=== PATIENT | female | born 1970 | race Caucasian/White ===

== ENCOUNTER → 2018-08-06 | Day surgery (SDC) | payer OTHER ==
[~2018-08-06] MED LIST: BENTYL10 MG PO; FAMOTIDINE20 MG PO; FENTANYL CITRATE/PF 100MCG/2 ML INJ ONE; MIDAZOLAM HCL 2 MG/2 ML VIAL ONE; PROBIOTIC & AC1 EACH PO; PROPOFOL IV EMULSION 10 MG/ML 50 ML VIAL ONE; ULTRAM50 MG PO
[2018-08-06 16:15] VITALS: BP 108/69
--- NOTE | 2018-08-06 17:22 | Operative Report ---
DATE OF PROCEDURE: August 06, 2018 REFERRING PHYSICIAN: Dr. Odin Prado. PROCEDURE PERFORMED: Esophagogastroduodenoscopy with biopsies. INDICATIONS FOR ESOPHAGOGASTRODUODENOSCOPY: Upper abdominal pain and heartburn. MEDICATION: Patient was done under MAC. Please see anesthesiologist's note. PROCEDURE: With the patient in the left lateral decubitus position, the flexible fiberoptic Olympus gastroscope was introduced into the esophagus under direct visualization without any difficulty. An approximately 4 mm sessile flat polypoid lesion was noted in the cervical esophagus, and that was biopsied. The mucosa overlying the distal esophagus revealed some patchy areas of erythema. The scope was then advanced with ease into the stomach. Mucosa overlying the antrum and the body revealed some patchy erythema and moderate edema, and biopsies were obtained and sent to stain for H. pylori. A minute polyp was noted in the distal body, and that was partially excised with the cold biopsy forceps. The pylorus was of normal contour and shape, was intubated with ease, and the scope was advanced all the way to the 2nd portion of the duodenum. The scope was then withdrawn slowly. Mucosa overlying the proximal 2nd portion and the duodenal bulb appeared to be within normal limits. The scope was then withdrawn back into the stomach and retroflexed, and mucosa overlying the fundus and the cardia appeared to be within normal limits. The scope was then straightened out. It was subsequently withdrawn. Patient tolerated the procedure well. IMPRESSION: 1. Approximately 4 mm sessile lesion, flat, proximal esophagus biopsied. 2. Distal esophagitis, mild. 3. Gastritis biopsied. Biopsies sent to stain for H. pylori. 4. Minute polyp distal body partially excised with the cold biopsy forceps. PLAN: Follow up histology. Initiate Protonix 40 mg 1 p.o. q.a.m. a.c. Job#: [id number] EV cc:ODIN PRADO DO
== END | disposition home or self-care (01) ==
LOC: OR 13:09
PROVIDERS: ATTEND Internal Medicine Gastroenterology
DX: K29.70 Gastritis, unspecified, without bleeding (principal); K31.7 Polyp of stomach and duodenum; K21.9 Gastro-esophageal reflux disease without esophagitis; K22.8 Other specified diseases of esophagus; K20.9 Esophagitis, unspecified; K44.9 Diaphragmatic hernia without obstruction or gangrene; K59.00 Constipation, unspecified; J45.909 Unspecified asthma, uncomplicated; F17.210 Nicotine dependence, cigarettes, uncomplicated; Z86.19 Personal history of other infectious and parasitic diseases
CPT/HCPCS: 43239; J2250

== ENCOUNTER → 2020-12-16 | Day surgery (SDC) | payer OTHER ==
[2020-12-11 12:01] LABS: BASOPHILS # (AUTO) 0.1 (0.0-0.1); BASOPHILS % 1.1 % (0.0-1.0); EOSINOPHILS # (AUTO) 0.2 (0.0-0.4); HEMOGLOBIN 14.1 g/dL (12.0-16.0); LYMPHOCYTES # (AUTO) 2.1 (1.0-3.2); LYMPHOCYTES % 25.1 % (18.0-39.1); MEAN CORPUSCULAR HEMOGLOBIN 31.9 pg (28-32); MEAN CORPUSCULAR HGB CONC 32.8 g/dL (31-35); MEAN CORPUSCULAR VOLUME 97.3 fL (81-99); MONOCYTES # (AUTO) 0.6 (0.2-0.8); MONOCYTES % 7.5 % (4.4-11.3); NEUTROPHILS # (AUTO) 5.4 (2.1-6.9); NEUTROPHILS % 63.9 % (38.7-80.0); PLATELET COUNT 279 x10e3/uL (140-360); RED BLOOD COUNT 4.42 x10e6/uL (3.6-5.1); RED CELL DISTRIBUTION WIDTH 12.4 % (11.7-14.4)
[~2020-12-16] MED LIST changes: +ALBUTEROL0.63 MG/3 NEB; +LEXAPRO10 MG PO; +LIDOCAINE HCL 2% LOCAL INJ 5 ML SDV VIAL INJ ONE; +PANTOPRAZOLE 40 MG 10ML VIAL ONE; +PANTOPRAZOLE SO40 MG PO; +PROPOFOL IV EMULSION 10 MG/ML 20 ML VIAL ONE; -PROPOFOL IV EMULSION 10 MG/ML 50 ML VIAL ONE; +SYMBICORT 80-10.2 GM INH
[2020-12-16 19:20] VITALS: BP 115/67
== END | disposition home or self-care (01) ==
LOC: OR 14:22
PROVIDERS: ATTEND Internal Medicine Gastroenterology
DX: K20.90 Esophagitis, unspecified without bleeding (principal); K31.7 Polyp of stomach and duodenum; K29.60 Other gastritis without bleeding; K25.9 Gastric ulcer, unspecified as acute or chronic, without hemorrhage or perforation; K21.9 Gastro-esophageal reflux disease without esophagitis; J45.909 Unspecified asthma, uncomplicated; F17.210 Nicotine dependence, cigarettes, uncomplicated; Z01.810 Encounter for preprocedural cardiovascular examination; Z01.812 Encounter for preprocedural laboratory examination; Z20.822 Contact with and (suspected) exposure to COVID-19; Z86.19 Personal history of other infectious and parasitic diseases
CPT/HCPCS: 36415; 43239; 85025; 93005; C9113; J2001; J2250; J2704; J3010; U0002